=== PATIENT | female | born 1960 | race Caucasian/White ===

== ENCOUNTER → 2016-12-31 | Outpatient (CLI) | payer BC ==
--- NOTE | 2017-01-03 09:42 | MM ---
Reason for exam: screening (asymptomatic). Last mammogram was performed 2 years and 11 months ago. History: Patient is postmenopausal. Reductions of both breasts, September 2005. Benign left mammotome panel of the left breast, August 27, 2005. Took hormonal contraceptives for 2 years beginning at age 18. Physical Findings: A clinical breast exam by your physician is recommended on an annual basis and results should be correlated with mammographic findings. MG Screening Mammo w CAD Bilateral CC and MLO view(s) were taken. Prior study comparison: January 28, 2014, right diagnostic mammogram w/CAD. July 24, 2013, CAD bilateral diagnostic mammogram. The breast tissue is heterogeneously dense. This may lower the sensitivity of mammography. No significant changes when compared with prior studies. ASSESSMENT: Benign, BI-RAD 2 RECOMMENDATION: Routine screening mammogram of both breasts in 1 year.
== END | disposition home or self-care (01) ==
LOC: RADMAMWWP 17:02
PROVIDERS: ATTEND Family Medicine
DX: Z12.31 Encounter for screening mammogram for malignant neoplasm of breast (principal)

== ENCOUNTER → 2018-04-06 | Outpatient (CLI) | payer BC ==
--- NOTE | 2018-04-06 13:19 | US ---
EXAMINATION TYPE: US venous doppler duplex LE LT DATE OF EXAM: 04/06/2018 12:48 PM COMPARISON: NONE CLINICAL HISTORY: M79.605 Pain of left lower extremity. Patient recently on long car trip. Woke up th is morning with left calf pain and swelling. SIDE PERFORMED: Left TECHNIQUE: The lower extremity deep venous system is examined utilizing real time linear array sonog ami with graded compression, doppler sonography and color-flow sonography. VESSELS IMAGED: External Iliac Vein (EIV) Common Femoral Vein Deep Femoral Vein Greater Saphenous Vein * Femoral Vein Popliteal Vein Small Saphenous Vein * Proximal Calf Veins (* superficial vessels) Results given to Tina in Dr. Childers' office at time of exam. Grayscale, color doppler, spectral doppler imaging performed of the deep veins of the left lower extr emity. There is normal flow, compressibility, vascular waveforms. Left Leg: Negative for DVT IMPRESSION: No sonographic evidence of deep venous thrombosis within the left lower extremity.
== END | disposition home or self-care (01) ==
LOC: RADUSWWP 12:02
PROVIDERS: ATTEND Internal Medicine
DX: M79.605 Pain in left leg (principal)

== ENCOUNTER → 2018-12-27 | Outpatient (CLI) | payer BC ==
[2018-12-27 22:49] LABS: T4, Free (Free Thyroxine) 1.4 ng/dL (0.80-1.80)
== END | disposition home or self-care (01) ==
LOC: LABWHC1 16:13
PROVIDERS: ATTEND Internal Medicine Endocrinology, Diabetes & Metabolism
DX: E03.8 Other specified hypothyroidism (principal)
CPT/HCPCS: 36415; 84439; 84443

== ENCOUNTER → 2019-01-15 | Outpatient (CLI) | payer BC ==
--- NOTE | 2019-01-15 15:03 | MR ---
EXAMINATION TYPE: MR shoulder RT wo con DATE OF EXAM: 01/15/2019 COMPARISON: Radiographs 12/08/2018 HISTORY: 58-year-old female with right shoulder pain x 4 months TECHNIQUE: Multiplanar, multisequence imaging of the right shoulder is performed without contrast. FINDINGS: There is some linear intrasubstance signal within the intracapsular portion of the long biceps tendon . The subscapularis tendon remains intact. Mild degenerative joint space narrowing at the acromial clavicular joint. The acromion abuts the burs al surface of the supraspinatus tendon. Mild inferior spurring is present which also impresses on to the myotendinous junction of the supraspinatus. Small effusion in the subacromial/subdeltoid bursa. Heterogeneous signal posterior to this and infraspinatus tendons with very shallow bursal sided teari ng/bursal sided fraying of the supraspinatus tendon. No high-grade partial or full-thickness tear of either supraspinatus or infraspinous tendons. No atrophy of the rotator cuff musculature. Moderate focal irregular cartilage loss along the mid glenoid. Humeral head articular cartilage is la rgely maintained. There is a small minimal joint effusion extending into the subscapularis recess. No discrete labral tear given noncontrast technique. No para labral cyst. No Hill-Sachs deformity or os acromiale. No suspicious bone marrow replacement. IMPRESSION: 1. Supraspinatus and infraspinatus tendinosis with shallow bursal sided tearing/bursal sided fraying of the supraspinatus tendon. No high-grade partial or full-thickness rotator cuff tear or muscle atro phy. 2. Moderate focal irregular cartilage loss along the mid glenoid. Small joint effusion is probably re active. 3. [id number] AC joint OA with mild impingement onto the underlying cuff. Mild subacromial/subd eltoid bursal effusion probably reactive. 4. Tendinosis versus intrasubstance tear of the long head biceps tendon.
== END | disposition home or self-care (01) ==
LOC: RADMRIMAIN 07:54
PROVIDERS: ATTEND Orthopaedic Surgery
DX: M19.011 Primary osteoarthritis, right shoulder (principal); M75.41 Impingement syndrome of right shoulder; M75.81 Other shoulder lesions, right shoulder

== ENCOUNTER → 2020-01-18 | Outpatient (CLI) | payer BC ==
--- NOTE | 2020-01-19 17:22 | US ---
EXAMINATION TYPE: US thyroid st tissue head/neck DATE OF EXAM: 01/18/2020 COMPARISON: NONE CLINICAL HISTORY: E04.0 Nontoxic diffuse goiter. Goiter GLAND SIZE: Right Lobe: 4.4 x 1.0 x 1.3 cm Overall Parenchyma: homogenous Left Lobe: 4.3 x .8 x 1.0 cm Overall Parenchyma: homogeneous Isthmus Thickness: .4 cm NODULES RIGHT: # of nodules measured on right: 0 LEFT: # of nodules measured on left: 0 ISTHMUS: # of nodules measured in the isthmus: 0 Bilateral neck scanned, no evidence of lymphadenopathy. IMPRESSION: Normal thyroid ultrasound.
== END | disposition home or self-care (01) ==
LOC: RADUSWWP 16:11
PROVIDERS: ATTEND Internal Medicine Endocrinology, Diabetes & Metabolism
DX: E04.0 Nontoxic diffuse goiter (principal)
CPT/HCPCS: 76536

== ENCOUNTER → 2022-05-14 | Outpatient (CLI) | payer BC ==
[2022-05-14 23:09] LABS: T4, Free (Free Thyroxine) 1.61 ng/dL (0.800-1.800)
== END | disposition home or self-care (01) ==
LOC: LABWHC1 15:05
PROVIDERS: ATTEND Internal Medicine Endocrinology, Diabetes & Metabolism
DX: E03.9 Hypothyroidism, unspecified (principal)
CPT/HCPCS: 36415; 84439; 84443

== ENCOUNTER → 2022-06-02 | Outpatient (CLI) | payer BC ==
[2022-06-02 10:22] VITALS: BP 118/75; PULSE 63; RESP 17
--- NOTE | 2022-06-02 11:07 | P.HPOB ---
History of Present Illness H&P Date: 06/02/22 Chief Complaint: The patient is here for her routine gynecologic exam and ma mmogram. This is a 61-year-old with an LMP of 2007. The patient is here to establish with this office. It has been more than 10 years since her last pelvic exam. The patient is without gynecologic complaints and denies any postmenopausal bleeding. Review of Systems The patient has gained 8 pounds over the last year. She denies respiratory, cardiac, or G.I. problems. Past Medical History Past Medical History: No Reported History, Thyroid Disorder Additional Past Medical History / Comment(s): Glaucoma and hypothyroidism. 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 History of Any Multi-Drug Resistant Organisms: None Reported Past Surgical History: Breast Surgery Additional Past Surgical History / Comment(s): BREAST REDUCTION 18+ YEARS AGO. Facial cosmetic surgery. Colonoscopy 2008. Past Anesthesia/Blood Transfusion Reactions: No Reported Reaction Past Psychological History: No Psychological Hx Reported (She denies current depression symptoms.) Smoking Status: Never smoker Past Alcohol Use History: Occasional (4 per week) Past Drug Use History: None Reported Additional History: She has been since 1980 and is retired. - Past Family History Father Family Medical History: Cancer Additional Family Medical History / Comment(s): Unknown cancer primary but with metastatic disease to the bones. Mother Family Medical History: Myocardial Infarction (MA) Additional Family Medical History / Comment(s): from heart attack at age 94. Medications and Allergies Home Medications Medication Instructions Recorded Confirmed Type Ascorbic Acid/Collagen Hydr 1 cap PO DAILY 06/02/22 06/02/22 History [Collagen Plus Vit C Capsule] Brinzolamide/Brimonidine Tart 1 drop BOTH EYES DAILY 06/02/22 06/02/22 History [Simbrinza 1%-0.2% Eye Drops] Latanoprost/Pf [Latanoprost 0.005% 1 drop BOTH EYES DAILY 06/02/22 06/02/22 History Eye Drop] Levothyroxine Sodium [Synthroid] 88 mcg PO DAILY 06/02/22 06/02/22 History Pedi Multivit No.205/Fluoride 1 mg PO DAILY 06/02/22 06/02/22 History [Moies-Gwk-Rdjn 1 mg Tab Chew] Timolol 0.5% Ophth Soln [Timoptic 1 drop BOTH EYES DAILY 06/02/22 06/02/22 History 0.5% Ophth Soln] Allergies Allergy/AdvReac Type Severity Reaction Status Date / Time No Known Allergies Allergy Unverified 06/02/22 10:06 Exam Vital Signs Pulse Resp BP Pulse Ox 06/02/22 10:10 63 17 118/75 99 Intake and Output 06/01/22 06/02/22 06/02/22 22:59 06:59 14:59 Other: Weight 65.317 kg Height 5 feet 7 inches, weight 144 pounds, BMI 22.6. This is a well-developed well-nourished white female who is alert and oriented times 3 in no acute distress. HEENT: Within normal limits. NECK: Supple without mass or thyromegaly. CHEST AND LUNGS: Clear to auscultation. HEART: Regular rate and rhythm. BREASTS: Are without mass or discharge. AXILLARY EXAM: Negative for adenopathy. BACK: Negative for CVA tenderness. ABDOMEN: Soft, nontender, without palpable masses. PELVIC EXAM: Normal external genitalia with mild atrophy. Cervix and vagina appear normal mild atrophy. There is no unusual discharge. There is no evidence of prolapse. The uterus is midposition, nongravid size and nontender. There are no palpable adnexal masses or tenderness. RECTAL EXAM: Rectovaginal exam is negative for mass or tenderness and is negative for occult blood. EXTREMITIES: Nontender. IMPRESSION: 1. 61-year-old menopausal female with normal gynecologic exam. PLAN: 1. Pap smear cotest was performed. If this is negative we will plan on repeating an an approximate 5 years and if they are both negative, we'll consider discontinuing them. 2. Self breast awareness was discussed with the patient. We have also discussed symptoms associated with inflammatory breast cancer. 3. Screening mammogram will be done today. 4. Osteoporosis prevention was discussed. I have stressed the importance of adequate calcium, vitamin D and regular exercise. Recommended amounts of calcium and vitamin D were also discussed. I have recommended bone density testing since it has been more than 5 years since her last one. She thinks her last one came back okay. She would like to do the bone density testing next year at her annual well woman examination. 5. She has completed her Covid vaccination series and did receive a booster. 6. I have recommended that she establish with a primary care physician since her last one left [facility]. 7. She was advised to return in one year for her annual well woman exam.
--- NOTE | 2022-06-03 08:05 | MM ---
Reason for Exam: Screening (asymptomatic). Last mammogram was performed 5 year(s) and 5 month(s) ago. Patient History: Menarche at age 12. First Full-Term at age 22. Postmenopausal. Hormonal Contraceptives for 2 years from age 18 until age 20. 09/2005, Bilateral Reduction. 08/27/2005, Benign Core Biopsy on the left side. Risk Values: Savita 5 year model risk: 1.5%. NCI Lifetime model risk: 6.5%. Prior Study Comparison: 07/24/2013 Bilateral Diagnostic Mammogram, [facility]. 01/28/2014 Right Diagnostic Mammogram, [facility]. 12/31/2016 Bilateral Screening Mammogram, [facility]. Tissue Density: The breast tissue is extremely dense which could obscure a lesion on mammography. Findings: Analyzed By CAD. There is no suspicious group of microcalcifications or new suspicious mass in either breast. Overall Assessment: Negative, BI-RAD 1 Management: Screening Mammogram of both breasts in 1 year. A clinical breast exam by your physician is recommended on an annual basis and results should be correlated with mammographic findings. Electronically signed and approved by: Clemente Deluna M.D. Radiologis
== END ==
LOC: WWCWWP 09:55
PROVIDERS: ATTEND Obstetrics & Gynecology
DX: Z01.419 Encounter for gynecological examination (general) (routine) without abnormal findings (principal); Z12.31 Encounter for screening mammogram for malignant neoplasm of breast; Z78.0 Asymptomatic menopausal state; E03.9 Hypothyroidism, unspecified; Z79.890 Hormone replacement therapy
CPT/HCPCS: 77067

== ENCOUNTER 2022-09-07 08:10 | Day surgery (SDC) | payer BC ==
[2022-09-06 10:20] VITALS: BMI 21.4
[~2022-09-07 08:10] MED LIST: LACTATED RINGERS 1,000 ML IV SCH
[2022-09-07 08:33] VITALS: TEMP 97
[2022-09-07] MEDS ORDERED: PROPOFOL 10 MG/ML 20 ML VIAL IV ONE (09:14)
[2022-09-07] MEDS ORDERED: LIDOCAINE 2% INJ 20 MG/ML (2 ML VIAL) ONE (09:14)
--- NOTE | 2022-09-07 09:37 | P.PCN ---
Date of Procedure: 09/07/22 Procedure(s) Performed: BRIEF HISTORY: Patient is a 62-year-old pleasant white female scheduled for an elective colonoscopy as a part of screening for colorectal neoplasia. Her last colonoscopy was 7 years ago. PROCEDURE PERFORMED: Colonoscopy. PREOPERATIVE DIAGNOSIS: Screening for colon cancer. IV sedation per Anesthesia. PROCEDURE: After informed consent was obtained, the patient, was brought into the endoscopy unit. IV sedation was administered by Anesthesia under continuous monitoring. Digital rectal examination was normal. Initially the Olympus CF-160 flexible video colonoscope was then inserted in the rectum, gradually advanced into the cecum without any difficulty. Careful examination was performed as the scope was gradually being withdrawn. Ileocecal valve and the appendiceal orifice were visualized and appeared normal. Prep was excellent. Mucosa of the cecum, ascending colon, transverse colon, descending colon, sigmoid colon, and rectum appeared normal. Retroflexion was performed in the rectum and no lesions were seen. The patient tolerated the procedure well. IMPRESSION: Normal-appearing colon from rectum to cecum with no evidence of colorectal neoplasia. RECOMMENDATIONS: Findings of this examination were discussed with the patient as well as a family. She was advised to have a repeat screening colonoscopy in 10 years..
[2022-09-07 09:41] VITALS: RESP 16
[2022-09-07 09:52] VITALS: BP 143/85; PULSE 62
== END 2022-09-07 10:10 | disposition home or self-care (01) ==
LOC: ORWHC2ENDO 08:10
PROVIDERS: ATTEND Internal Medicine Gastroenterology
DX: Z12.11 Encounter for screening for malignant neoplasm of colon (principal); E03.9 Hypothyroidism, unspecified; Z79.890 Hormone replacement therapy
CPT/HCPCS: 45378; J2704; J2001

== ENCOUNTER → 2022-11-16 | Outpatient (CLI) | payer BC ==
[2022-11-16 18:32] LABS: T4, Free (Free Thyroxine) 1.48 ng/dL (0.800-1.800)
== END | disposition home or self-care (01) ==
LOC: LABWHC1 13:14
PROVIDERS: ATTEND Internal Medicine Endocrinology, Diabetes & Metabolism
DX: E06.3 Autoimmune thyroiditis (principal)
CPT/HCPCS: 36415; 84439; 84443

== ENCOUNTER → 2023-06-15 | Outpatient (CLI) | payer BC ==
--- NOTE | 2023-06-15 09:24 | BD ---
EXAMINATION TYPE: Axial Bone Density DATE OF EXAM: 06/15/2023 CLINICAL HISTORY: 62 years old Female. ICD-10 CODE: D06067 RIGHT HIP OSTEO Height: 66.2 in Weight: 142 lbs RISK FACTORS HISTORY OF: Active: yes Postmenopausal woman: age 48 MEDICATIONS: Thyroid Medications: yes Which medication: Levothyroxine How Lon+ years Additional Medications: supplements, eye vitamin, EXAM MEASUREMENTS: Bone mineral densitometry was performed using the [employer] System. Bone mineral density as measured about the Lumbar spine is: ----- L1-L4(G/cm2): 1.150 T Score Values are as follows: ----- L1: -0.9 ----- L2: -1.0 ----- L3: 0.3 ----- L4: 0.2 ----- L1-L4: -0.2 Z Score Values are as follows: ----- L1: 0.7 ----- L2: 0.6 ----- L3: 1.9 ----- L4: 1.8 ----- L1-L4: 1.3 Bone mineral density has: Decreased -11.3% since study of: 02/19/2004 Bone mineral density about the R hip (g/cm2): 0.759 Bone mineral density about the L hip (g/cm2): 0.756 T Score values are as follows: -----R Neck: -1.7 -----L Neck: -1.7 -----R Total: -2.0 -----L Total: -2.0 Z Score values are as follows: -----R Neck: -0.2 -----L Neck: -0.2 -----R Total: -0.8 -----L Total: -0.8 Bone mineral density has: Decreased -21.4% since study of: 02/19/2004 FRAX%s: The graph provided illustrates a 9.1% chance for a major osteoporotic fx and a 1.2% chance fo r the hips probability for fx in 10 years time. IMPRESSION: Osteopenia (T Score between -2.5 and -1). There is slightly increased risk of fracture and the patient may be considered for treatment. Re-Screen 2-5 years. NOTE: T-SCORE=SD OF THE YOUNG ADULT MEAN.
--- NOTE | 2023-06-15 10:03 | US ---
EXAMINATION TYPE: US carotid duplex BILAT DATE OF EXAM: 06/15/2023 COMPARISON: NONE CLINICAL INDICATION: Female, 62 years old with history of [id number] CAROTID STENOSIS, BILAT; Stenosis. TECHNIQUE: Carotid duplex ultrasound examination. Indirect Doppler criteria was utilized. 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 No elevated velocities at this time. IMPRESSION: Less than 50% stenosis of the bilateral carotid bifurcations. Criteria for Assigning % of Stenosis / Diameter reduction (Estimation based on the indirect measurements of the internal carotid artery velocities (ICA PSV). 1. Normal (no stenosis)=ICA PSV < 125 cm/s: ratio < 2.0: ICA EDV<40 cm/s. 2. Less than 50% stenosis=ICA PSV < 125 cm/s: ratio < 2.0: ICA EDV<40 cm/s. 3. 50 to 69% stenosis=ICA PSV of 125 to 230 cm/s: ration 2.0 ? 4.0: ICA EDV 40-100 cm/s. 4. Greater than 70% stenosis to near occlusion= ICA PSV > 230 cm/s: ratio > 4.0: ICA EDV > 100 cm/s. 5. Near occlusion= ICA PSV velocities may be low or undetectable: variable ratio and ICA EDV. 6. Total occlusion=unable to detect flow.
--- NOTE | 2023-06-15 14:34 | MM ---
Reason for Exam: Screening (asymptomatic). Last screening mammogram was performed 12 month(s) ago. Patient History: Menarche at age 12. First Full-Term at age 22. Postmenopausal. Hormonal Contraceptives for 2 years from age 18 until age 20. 09/2005, Bilateral Reduction. 08/27/2005, Benign Core Biopsy on the left side. Risk Values: Savita 5 year model risk: 1.6%. NCI Lifetime model risk: 6.3%. Prior Study Comparison: 01/28/2014 Right Diagnostic Mammogram, [facility]. 12/31/2016 Bilateral Screening Mammogram, [facility]. 06/02/2022 Bilateral MG screening mammo w CAD, [facility]. Tissue Density: The breast tissue is heterogeneously dense. This may lower the sensitivity of mammography. Findings: Analyzed By CAD. There is no suspicious group of microcalcifications or new suspicious mass in either breast. Left breast biopsy clip. Overall Assessment: Negative, BI-RAD 1 Management: Screening Mammogram of both breasts in [address] [facility] will attempt to contact patient to return for supplemental views and ultrasound if indicated. Patient should continue monthly self-breast exams. A clinical breast exam by your physician is recommended on an annual basis. This exam should not preclude additional follow-up of suspicious palpable abnormalities. Note on Savita scores and lifetime risk: 1. A Savita score greater than 3% is considered moderate risk. If this is the case, consider specialist referral to assess eligibility for a risk reducing agent. 2. If overall lifetime risk for the development of breast cancer is 20% or higher, the patient may qualify for future screening with alternating mammogram and breast MRI. Electronically signed and approved by: Keshav Bean DO
== END | disposition home or self-care (01) ==
LOC: RADMAMWWP 08:27
PROVIDERS: ATTEND Internal Medicine
DX: Z12.31 Encounter for screening mammogram for malignant neoplasm of breast (principal); M85.89 Other specified disorders of bone density and structure, multiple sites; I65.23 Occlusion and stenosis of bilateral carotid arteries; Z78.0 Asymptomatic menopausal state
CPT/HCPCS: 77063; 77067; 77080; 93880

== ENCOUNTER → 2024-08-27 | Outpatient (CLI) | payer MEDICARE ==
--- NOTE | 2024-08-29 09:47 | MM ---
Reason for Exam: Screening (asymptomatic). Last mammogram was performed 1 year(s) and 3 month(s) ago. Patient History: Menarche at age 12. First Full-Term at age 22. Postmenopausal. Hormonal Contraceptives for 2 years from age 18 until age 20. 09/2005, Bilateral Reduction. 08/27/2005, Benign Core Biopsy on the left side. Risk Values: Savita 5 year model risk: 1.6%. NCI Lifetime model risk: 5.8%. Prior Study Comparison: 12/31/2016 Bilateral Screening Mammogram, [facility]. 06/02/2022 Bilateral MG screening mammo w CAD, [facility]. 06/15/2023 Bilateral MG 3D screening mammo w/cad, [facility]. Tissue Density: The breasts are heterogeneously dense, which may obscure small masses. Findings: Analyzed By CAD. There is no suspicious group of microcalcifications or new suspicious mass in either breast. Overall Assessment: Negative, BI-RAD 1 Management: Screening Mammogram of both breasts in 1 year. . Patient should continue monthly self-breast exams. A clinical breast exam by your physician is recommended on an annual basis. This exam should not preclude additional follow-up of suspicious palpable abnormalities. Note on Savita scores and lifetime risk: 1. A Savita score greater than 3% is considered moderate risk. If this is the case, consider specialist referral to assess eligibility for a risk reducing agent. 2. If overall lifetime risk for the development of breast cancer is 20% or higher, the patient may qualify for future screening with alternating mammogram and breast MRI. [facility], , 08/29/2024 9:43 AM. Electronically signed and approved by: Clemente Deluna M.D. Radiologis
== END | disposition home or self-care (01) ==
LOC: RADMAMWWP 12:47
PROVIDERS: ATTEND Internal Medicine
CPT/HCPCS: 77063; 77067